=== PATIENT | male | born 2005 | race Caucasian/White ===

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

== ENCOUNTER 2023-03-08 00:56 | Emergency (ER) | payer MEDICAID ==
[2023-03-08] MEDS ORDERED: Azithromycin 250 MG Tab PO ONE (00:57)
== END 2023-03-08 01:43 | disposition home or self-care (01) ==
LOC: FB.ED 00:56
DX: J02.0 Streptococcal pharyngitis (principal); J45.909 Unspecified asthma, uncomplicated; K21.9 Gastro-esophageal reflux disease without esophagitis; Z79.899 Other long term (current) drug therapy; Z91.048 Other nonmedicinal substance allergy status
CPT/HCPCS: 99282; 99283; A9270-GY

== ENCOUNTER 2023-03-23 01:47 | Emergency (ER) | payer MEDICAID ==
[2023-03-23 02:36] LABS: THC SCREEN,URINE POSITIVE (NEGATIVE)
[2023-03-23 02:37] LABS: AMPHETAMINES SCREEN, URINE POSITIVE (NEGATIVE); BARBITURATE SCREEN,URINE NEGATIVE (NEGATIVE); BENZODIAZEPINES SCREEN,URINE NEGATIVE (NEGATIVE); METHADONE SCREEN, URINE NEGATIVE (NEGATIVE); METHAMPHETAMINE SCREEN, URINE NEGATIVE (NEGATIVE); OXYCODONE SCREEN,URINE NEGATIVE (NEGATIVE)
[2023-03-23 02:38] LABS: BUPRENORPHINE SCREEN,URINE NEGATIVE (NEGATIVE)
== END 2023-03-23 02:57 | disposition home or self-care (01) ==
LOC: FB.ED 01:47
DX: F12.20 Cannabis dependence, uncomplicated (principal); F15.129 Other stimulant abuse with intoxication, unspecified; F17.210 Nicotine dependence, cigarettes, uncomplicated; J45.909 Unspecified asthma, uncomplicated; K21.9 Gastro-esophageal reflux disease without esophagitis; Z91.048 Other nonmedicinal substance allergy status; Z79.899 Other long term (current) drug therapy
CPT/HCPCS: 80307; 99283; 99284

== ENCOUNTER 2023-12-08 14:35 | Emergency (ER) | payer OTHER, MEDICAID ==
[2023-12-08] MEDS: Acetaminophen/oxyCODONE 325-5 MG Tab PO STA (15:43)
[2023-12-08] MEDS: Cyclobenzaprine 10 MG Tab PO ONE (15:44)
== END 2023-12-08 17:00 | disposition home or self-care (01) ==
LOC: FB.ED 14:35
DX: S02.2XXA Fracture of nasal bones, initial encounter for closed fracture (principal); S00.83XA Contusion of other part of head, initial encounter; R51.9 Headache, unspecified; R07.81 Pleurodynia; M25.521 Pain in right elbow; M25.512 Pain in left shoulder; M25.531 Pain in right wrist; M25.532 Pain in left wrist; J45.909 Unspecified asthma, uncomplicated; K21.9 Gastro-esophageal reflux disease without esophagitis; Z79.899 Other long term (current) drug therapy; Y04.2XXA Assault by strike against or bumped into by another person, initial encounter
CPT/HCPCS: 70450; 70486; 71101; 72040; 72100; 73080; 73110; 99283; 99284; A9270

== ENCOUNTER 2024-06-28 17:34 | Emergency (ER) | payer MEDICAID ==
[2024-06-28] MEDS: Acetaminophen 500 MG Tab PO ONE (18:42)
== END 2024-06-28 19:52 | disposition home or self-care (01) ==
LOC: FB.ED 17:34
DX: S80.02XA Contusion of left knee, initial encounter (principal); F17.200 Nicotine dependence, unspecified, uncomplicated; Z88.8 Allergy status to other drugs, medicaments and biological substances; Z79.51 Long term (current) use of inhaled steroids; W22.8XXA Striking against or struck by other objects, initial encounter
CPT/HCPCS: 73562; 99283; A9270

== ENCOUNTER 2024-08-22 21:06 | Emergency (ER) | payer OTHER, MEDICAID | END 2024-08-22 23:00 | disposition home or self-care (01) | LOC: FB.ED 21:06 | DX: S80.02XA Contusion of left knee, initial encounter (principal); S90.32XA Contusion of left foot, initial encounter; J45.909 Unspecified asthma, uncomplicated; Z91.048 Other nonmedicinal substance allergy status; Z79.51 Long term (current) use of inhaled steroids; V19.9XXA Pedal cyclist (driver) (passenger) injured in unspecified traffic accident, initial encounter | CPT/HCPCS: 73560-LT; 73610-LT; 73630-LT; 99283; 99284 ==